=== PATIENT | male | born 1990 | race Caucasian/White ===

== ENCOUNTER 2017-11-27 12:02 | Emergency (ER) | payer OTHER, SELFPAY ==
[2017-11-27 12:03] VITALS: BP 117/72; PULSE 69; RESP 16; TEMP 36.1; O2SAT 99; BMI 20.9
--- NOTE | 2017-11-27 12:30 | RAD_ITS ---
STUDY: X-RAY - RIGHT SHOULDER REASON FOR EXAM: Male, 27 years old. 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 TECHNIQUE: 4 view(s) of the shoulder. COMPARISON: None. FINDINGS: Normal glenohumeral articulation. Normal acromioclavicular joint. Normal acromion. Normal humeral head and visualized proximal humerus. The soft tissue structures are unremarkable. Normal visualized pulmonary apex. RAD/Shoulder min 2 Views IMPRESSION: No acute pathology of the right shoulder. Electronically Signed: Sascha Covington MD at 12:54 EDT , Service support ,
--- NOTE | 2017-11-27 12:34 | ED.DCSUM_ITS ---
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 Complains of pain to the lateral right shoulder. Worse with movement. Denies weakness or numbness. Denies prior shoulder injury or surgery. Denies any other injuries or complaints. Physical Examination: Vital signs unremarkable. Afebrile. Nontoxic and in no acute distress. Alert and oriented. Appropriate for situation. Right shoulder shows normal inspection. Good range of motion. Tender to palpation of the lateral and posterior aspects of the right shoulder. No laxity or deformity. Neurovascularly intact distally. Test Results: X-rays pending. Emergency Department Course and Treatment: He was treated with Motrin and an ice pack while awaiting results. X-rays unremarkable. Patient instructed to rest, ice, elevate. Motrin for pain. Follow-up with corporate care. No lifting at work with the right arm. He was given a work note. Workmen's Compensation paperwork was completed. Treatment Plan: As above Disposition: Discharge Impression: 1. Right shoulder sprain This note was generated with [employer] dictation software. It may contain incorrect words, spelling, and punctuation that were not noted in review of the chart prior to signing ED Disposition - Plan for ED Patient: Chief Complaint: Upper Extremity Injury Referrals: Phil Walls III, MD [Primary Care Provider] -
[2017-11-27] MEDS: Ibuprofen 600 MG Tablet PO (12:42)
--- NOTE | 2017-11-27 13:44 | DCINST.ED_ITS ---
ED Disposition - Plan for ED Patient: Chief Complaint: Upper Extremity Injury Instructions: ED Sprain Shoulder Referrals: Corporate,[facility] [GROUP OF PHYSICIANS] -
--- NOTE | 2017-11-27 13:44 | ED.DEP ---
ED Disposition - Plan for ED Patient: Chief Complaint: Upper Extremity Injury Instructions: ED Sprain Shoulder Referrals: Corporate,[facility] [GROUP OF PHYSICIANS] -
[2017-11-27 13:49] VITALS: BP 115/76; PULSE 83; RESP 14; O2SAT 99
== END 2017-11-27 13:53 | disposition home or self-care (01) ==
LOC: ED 12:58
PROVIDERS: Emergency Provider Emergency Medicine; Family Provider Family Medicine; PCP Family Medicine
DX: S43.401A Unspecified sprain of right shoulder joint, initial encounter (principal); X50.9XXA Other and unspecified overexertion or strenuous movements or postures, initial encounter; Y93.F2 Activity, caregiving, lifting; Y92.9 Unspecified place or not applicable; Y99.0 Civilian activity done for income or pay; Z79.899 Other long term (current) drug therapy
CPT/HCPCS: 73030; 99283

== ENCOUNTER → 2025-05-30 | Outpatient (CLI) | payer OTHER, SELFPAY ==
[2025-05-30 16:53] LABS: Hematocrit 44.6 % (40-54); Hemoglobin 15.1 g/dL (13.0-16.5); Immature Granulocytes Count 0.020 X10^3/uL (0.0-0.0); Mean Corp Hgb Conc 33.9 g/dL (32-36); Mean Corpuscular Volume 89.6 fL (80-94); Mean Platelet Vol. 9.8 fl (6.2-12.0); NRBC Flagged by Analyzer 0 % (0-5); Platelet Count 204 K/mm3 (150-450); RBC Distribution Width CV 12.3 % (11.6-14.6); RBC Distribution Width SD 40.0 fl (35.1-43.9); Red Blood Count 4.98 M/mm3 (4.6-6.2); White Blood Count 3.4 K/mm3 (4.4-11.0)
[2025-05-30 17:37] LABS: AST(SGOT) 24 U/L (<=37); Alanine Aminotransfer ALT/SGPT 18 U/L (<=46); Albumin, Serum 4.6 g/dL (3.5-5.0); Alkaline Phosphatase 70 U/L (40-129); Anion Gap 10 (5-15); BUN 8 mg/dL (4-19); BUN/Creat Ratio 9.5 RATIO (10-20); Calcium,Total 9.2 mg/dL (7.6-11.0); Carbon Dioxide 26.1 mmol/L (21.0-32.0); Chloride 104 mmol/L (98-108); Globulin 2.9 g/dL (2.2-4.2); Glucose 87 mg/dL (70-99); Iron 81 ug/dL (65-175); Iron Binding Capacity,Total 314 ug/dL (250-450); Iron Binding Capacity,Unsat 233 ug/dL (228-428); Potassium 4.1 mmol/L (3.3-5.1)
[2025-05-30 21:37] LABS: Color, Urine Yellow (Yellow); Glucose, Dipstick Normal (Normal); Ketone-Dipstick Negative (Negative); Leukocyte Esterase-Dipstick Negative /ul (Negative); Nitrite-Dipstick Negative (Negative); Occult Blood-Urine Negative /ul (Negative); Protein-Dipstick Negative (Negative); Specific Gravity, Urine 1.010 (1.002-1.030); Urine Bilirubin Dipstick Negative (Negative)
[2025-05-31 10:02] LABS: Barbiturate Urine NEGATIVE (< 200 ng/mL); Benzodiazepine Urine NEGATIVE (< 200 ng/mL); PCP Urine NEGATIVE (< 25 ng/mL); THC Urine NEGATIVE (< 50 ng/mL)
[2025-06-01 06:08] LABS: Mumps Antibody,IgG 70.0 AU/mL (Immune >10.9); V-Zoster IgG (Immunity) Reactive (Non Reactive)
== END | disposition home or self-care (01) ==
LOC: VSLAB 15:07
DX: Z01.84 Encounter for antibody response examination (principal); R53.83 Other fatigue; F41.9 Anxiety disorder, unspecified; F90.9 Attention-deficit hyperactivity disorder, unspecified type
CPT/HCPCS: 36415; 80053; 80307; 81002; 83540; 83550; 84443; 85025; 86706; 86735; 86762; 86765; 86787